=== PATIENT | female | born 1980 | race Caucasian/White ===

== ENCOUNTER 2017-03-18 14:49 | Emergency (ER) | payer MEDICAID ==
[~2017-03-18] VITALS: Ht 160 cm; Wt 68.0 kg
[2017-03-18 14:52] VITALS: Ht 160 cm; Wt 68.0 kg
[2017-03-18 15:58] LABS: ADD SCAN DIFF NO
[2017-03-18 16:01] LABS: BASOPHILS % 0.3 % (0.0-2.0); EOSINOPHILS # 0.1 10^3/ul (0.0-0.5); EOSINOPHILS % 2.2 % (0.0-7.0); HEMATOCRIT 35.3 % (37.0-47.0); HEMOGLOBIN 11.7 g/dl (12.0-16.0); LYMPHOCYTES # 1.9 10^3/ul (0.8-2.9); LYMPHOCYTES % 30.7 % (15.0-51.0); MEAN CORPUSCULAR HEMOGLOBIN 30.2 pg (29.0-33.0); MEAN CORPUSCULAR HGB CONC 33.1 g/dl (32.0-37.0); MEAN PLATELET VOLUME 10.3 fl (7.4-10.4); MONOCYTE # 0.5 10^3/ul (0.3-0.9); MONOCYTES % 7.5 % (0.0-11.0); NEUTROPHIL # 3.7 10^3/ul (1.6-7.5); NEUTROPHILS % 58.8 % (39.0-77.0); PLATELET COUNT 209 10^3/UL (140-415); RED BLOOD COUNT 3.88 10^6/ul (4.20-5.40); WHITE BLOOD COUNT 6.3 10^3/ul (4.8-10.8)
--- NOTE | 2017-03-18 16:07 | RADRPT ---
PROCEDURE: US Pelvis. CLINICAL INDICATION: vaginal bleeding TECHNIQUE: Multiple sonographic images of the pelvis were obtained utilizing a transabdominal and endovaginal technique. The images were reviewed on a PACS workstation. COMPARISON: None. FINDINGS: The uterus is normal in size and demonstrates a normal appearance of the myometrium. The endometria l stripe is heterogeneous in appearance and has the thickness of 11 mm. No intrauterine gestation is noted. The ovaries are normal in size and echogenicity. Normal Doppler flow is identified in both ovaries. The right ovary measures 2.4 x 2.0 x 2.1 cm. The left ovary measures 1.9 x 1.6 cm. No free fluid is present within the pelvis.. RPTAT: AA IMPRESSION: No intrauterine gestation visualized. Differential diagnosis includes early , missed or ectopic . Follow-up ultrasound and HCG levels is recommended. .Armaan Oneil MD, Date Time Electronically viewed and signed by .Armaan Oneil MD, on 03/18/2017 16:07 .S/
--- NOTE | 2017-03-18 16:14 | ERD ---
ER Documentation Chief Complaint Date/Time DATE: 03/18/17 TIME: 16:12 Chief Complaint 6 weeks with spotting HPI 36-year-old female who is A0 approximately 6 weeks. LMP was February 04, 2017 , comes emergency room with slight vaginal spotting and suprapubic pelvic cramping for the past 1 day. She states that the pain is in the center, nonradiating, and slight spotting only. She has not had any dizziness, fevers or chills. ROS All systems reviewed and are negative except as per history of present illness. Allergies Allergies: Coded Allergies: No Known Allergy (Verified Allergy, Unknown, 11/01/07) PMhx/Soc History of Surgery: Yes (gall bladder) Anesthesia Reaction: No Hx Neurological Disorder: No Hx Respiratory Disorders: No Hx Cardiac Disorders: No Hx Psychiatric Problems: No Hx Miscellaneous Medical Probl: Yes (6 weeks ) Hx Alcohol Use: No Hx Substance Use: No Hx Tobacco Use: No Smoking Status: Never smoker Physical Exam Vitals Vital Signs Date Time Temp Pulse Resp B/P Pulse Ox O2 Delivery O2 Flow Rate FiO2 03/18/17 14:52 98.1 68 20 124/58 99 Physical Exam General: Well-developed, well-nourished. The patient appears in no acute distress. HEENT: Head is normocephalic, atraumatic. No scleral icterus. Neck: Supple. Nontender. Lungs: Clear to auscultation. Normal air movement. Heart: Regular rate and rhythm. S1 and S2 are normal. No murmurs, gallops, or rubs. Abdomen: Soft, nontender, nondistended. Bowel sounds are normoactive. Extremities: No clubbing or cyanosis. Normal pulses. Moving extremities x 4. No weakness. Neurologic: Alert and oriented 3. No focal deficits. Skin: Normal turgor. No rash or lesions. Result Diagram: 03/18/17 1542 Results 24 hrs Laboratory Tests Test 03/18/17 15:42 03/18/17 16:10 White Blood Count 6.310^3/ul Red Blood Count 3.8810^6/ul Hemoglobin 11.7g/dl Hematocrit 35.3% Mean Corpuscular Volume 91.0fl Mean Corpuscular Hemoglobin 30.2pg Mean Corpuscular Hemoglobin Concent 33.1g/dl Red Cell Distribution Width 13.0% Platelet Count 78448^3/UL Mean Platelet Volume 10.3fl Neutrophils % 58.8% Lymphocytes % 30.7% Monocytes % 7.5% Eosinophils % 2.2% Basophils % 0.3% Nucleated Red Blood Cells % 0.0/100WBC Neutrophils # 3.710^3/ul Lymphocytes # 1.910^3/ul Monocytes # 0.510^3/ul Eosinophils # 0.110^3/ul Basophils # 0.010^3/ul Nucleated Red Blood Cells # 0.010^3/ul Beta HCG, Quantitative 59.9mIU/ml Urine Color YELLOW Urine Clarity SLIGHTLY CLOUDY Urine pH 7.0 Urine Specific [place] 1.016 Urine Ketones NEGATIVEmg/dL Urine Nitrite NEGATIVEmg/dL Urine Bilirubin NEGATIVEmg/dL Urine Urobilinogen NEGATIVEmg/dL Urine Leukocyte Esterase NEGATIVELeu/ul Urine Microscopic RBC 25/HPF Urine Microscopic WBC 2/HPF Urine Amorphous Crystals FEW/HPF Urine Hemoglobin 3+mg/dL Urine Glucose NEGATIVEmg/dL Urine Total Protein NEGATIVEmg/dl DIAGNOSTIC IMAGING REPORT Patient: SHEKHAR MILAN : 1980 Age: 36 Sex: F MR #: [id number] DOS: 03/18/17 1535 Ordering MD: FERNANDO CHILEL PA-C Location: [facility] Room/Bed: PROCEDURE: US Pelvis. CLINICAL INDICATION: vaginal bleeding TECHNIQUE: Multiple sonographic images of the pelvis were obtained utilizing a transabdominal and endovaginal technique. The images were reviewed on a PACS workstation. COMPARISON: None. FINDINGS: The uterus is normal in size and demonstrates a normal appearance of the myometrium. The endometrial stripe is heterogeneous in appearance and has the thickness of 11 mm. No intrauterine gestation is noted. The ovaries are normal in size and echogenicity. Normal Doppler flow is identified in both ovaries. The right ovary measures 2.4 x 2.0 x 2.1 cm. The left ovary measures 1.9 x 1.6 cm. No free fluid is present within the pelvis.. RPTAT: AA IMPRESSION: No intrauterine gestation visualized. Differential diagnosis includes early , missed or ectopic . Follow-up ultrasound and HCG levels is recommended. .Armaan Oneil MD, Date Time Electronically viewed and signed by .Armaan Oneil MD, on 03/18/2017 16: 07 .S/ CC: FERNANDO CHILEL PA-C Procedures/MDM 36-year-old female comes in with a history of positive test, complaining of vaginal bleeding and cramping for the past day. Her workup included labs, urine and ultrasound. Her beta quantitative hCG was less than 60 , without any evidence of ectopic or intrauterine seen on the ultrasound. I suspect a miscarriage that occurred, this was discussed with the patient however this is her first evaluation. She was asked to recheck in 1-2 days, including a beta quant to reevaluate. At this time suspicion for ectopic is low. Her quantitative hCG is about 59 at this time. She does come in with vaginal bleeding and type and Rh is A+, no indication for RhoGam. Findings were discussed with the patient, she expresses understanding of this plan and agrees. Departure Diagnosis: Primary Impression: Vaginal bleeding Condition: Good FERNANDO CHILEL PA-C Mar 18, 2017 16:14
[2017-03-18 16:42] LABS: ADD UMIC YES; UR AMORPHOUS CRYSTAL FEW /HPF (NONE SEEN); UR ASCORBIC ACID NEGATIVE (NEGATIVE); UR BILIRUBIN (Dip) NEGATIVE (NEGATIVE); UR BLOOD (Dip) 3+ mg/dL (NEGATIVE); UR CLARITY SLIGHTLY CLOUDY (CLEAR); UR COLOR YELLOW (YELLOW); UR GLUCOSE (Dip) NEGATIVE (NEGATIVE); UR KETONES (Dip) NEGATIVE (NEGATIVE); UR LEUKOCYTE ESTERASE (Dip) NEGATIVE Leu/ul (NEGATIVE); UR NITRITE (Dip) NEGATIVE (NEGATIVE); UR RBC 25 /HPF (0-5); UR SPECIFIC GRAVITY (Dip) 1.016 (1.003-1.030); UR TOTAL PROTEIN (Dip) NEGATIVE (NEGATIVE); UR UROBILINOGEN (Dip) NEGATIVE (NEGATIVE)
== END 2017-03-18 17:12 | disposition home or self-care (01) ==
LOC: FTE 14:49
DX: O20.9 Hemorrhage in early pregnancy, unspecified (principal); R10.2 Pelvic and perineal pain; Z3A.01 Less than 8 weeks gestation of pregnancy
CPT/HCPCS: 36415; 76801; 76817; 81001; 84702; 85025; 86900; 86901; Z7502

== ENCOUNTER 2017-12-26 11:00 | Outpatient (CLI) | END 2017-12-26 12:00 | disposition home or self-care (01) ==

== ENCOUNTER 2018-01-06 04:48 | Inpatient (IN) | END 2018-01-08 15:27 | disposition home or self-care (01) | DRG 775 ==